=== PATIENT | male | born 1960 | race Caucasian/White ===

== ENCOUNTER 2021-12-27 01:57 | Day surgery (SDC) | payer BC, SELFPAY ==
[2021-12-14 13:07] VITALS: BMI 32.2
--- NOTE | 2021-12-27 07:58 | WPDANESEPPF ---
Anes - Initial Pre Proc Eval Procedure: Operation Date: 12/27/21 13:00 Proposed Procedures p Screening Colonoscopy - Manjit Miller MD Date/Time: 12/27/21 07:58 Surgeon: Manjit Miller MD Pre Op Diagnosis: neoplasm screening Patient Data Age: 61 Gender: M Height: 1.88 m Weight: 114 kg Allergies Allergy/AdvReac Type Severity Reaction Status Date / Time No Known Allergies Allergy Verified 12/27/21 11:42 Home Medications Medication Instructions Recorded Confirmed Type gemfibrozil 600 mg tablet 600 mg PO BID 11/29/21 12/14/21 History levothyroxine 88 mcg tablet 88 mcg PO DAILY 11/29/21 12/14/21 History lisinopril 10 mg tablet 10 mg PO DAILY 11/29/21 12/14/21 History metoprolol tartrate 100 mg tablet 100 mg PO DAILY 11/29/21 12/14/21 History tadalafil 5 mg tablet 5 mg PO DAILY 11/29/21 12/27/21 History Patient hx anesthesia problems: none Family hx anesthesia problems: none Results Review: All pre-operative results and documents have been reviewed as part of the pre-operative evaluation. [facility] Past Medical History Medical History (Updated 12/27/21 @ 07:59 by Bonilla Toure DO) Hyperlipidemia Hypertension Hypothyroidism Surgical History Surgical History H/O umbilical hernia repair History of vasectomy Family History Family History Other Breast cancer Unknown Diabetes mellitus Grandparent Acute myocardial infarction Father Cerebrovascular accident Social History Social History Smoking status: Never smoker Alcohol intake: current Alcohol use details: socially Substance use: never Substance use type: does not use Living arrangements: with family Spiritual care concerns: No Agree to blood products: Yes Anes - Eval Final PreProcedure Day of Procedure 12/27/21 07:58 Patient weight: obese Heart: regular rate and rhythm Lungs: clear to auscultation Airway: Mallampati scale class II Neurological: alert and oriented Last oral intake: >/= 8 hours ASA classification: III Emergent: no Anesthetic plan: proceed Anesthesia type and monitoring: general GIVS and standard monitoring Results Review: All pre-operative results and documents have been reviewed as part of the pre-operative evaluation. Informed Consent: The patient's anesthetic plan and its attendant risks and benefits were discussed with the patient/family/POA. Questions were solicited and answers provided to the satisfaction of the patient/family/POA.
[2021-12-27 11:43] VITALS: BP 134/80; PULSE 54; RESP 16; TEMP 36.2; O2SAT 100
[2021-12-27] MEDS: LACTATED RINGERS 1,000 ML 150 ML IV CONT (11:46)
--- NOTE | 2021-12-27 12:30 | P.HP_ITS ---
H&P: HPI History of Present Illness Date/Time: 12/27/21 12:30 Chief Complaint: History of colon polyp. Narrative: This is a 61-year-old white male patient presents for screening colonoscopy. Patient reports having had colon polyp at a different institution 5 years ago. Patient reports his current weight appetite and bowel movements are normal. He denies abdominal pain. Patient has had no bleeding. Family history is noncontributory. Review of Systems Review of Systems: Review of systems noncontributory. [facility] Past Medical History Medical History (Updated 12/27/21 @ 12:32 by Manjit Miller MD) Hyperlipidemia Hypertension Hypothyroidism Surgical History Surgical History H/O umbilical hernia repair History of vasectomy Family History Family History Other Breast cancer Unknown Diabetes mellitus Grandparent Acute myocardial infarction Father Cerebrovascular accident Social History Social History Smoking status: Never smoker Alcohol intake: current Alcohol use details: socially Substance use: never Substance use type: does not use Living arrangements: with family Spiritual care concerns: No Agree to blood products: Yes Meds Home Medications and Allergies Home Medications Medication Instructions Recorded Confirmed Type gemfibrozil 600 mg tablet 600 mg PO BID 11/29/21 12/14/21 History levothyroxine 88 mcg tablet 88 mcg PO DAILY 11/29/21 12/14/21 History lisinopril 10 mg tablet 10 mg PO DAILY 11/29/21 12/14/21 History metoprolol tartrate 100 mg tablet 100 mg PO DAILY 11/29/21 12/14/21 History tadalafil 5 mg tablet 5 mg PO DAILY 11/29/21 12/27/21 History Allergies Allergy/AdvReac Type Severity Reaction Status Date / Time No Known Allergies Allergy Verified 12/27/21 11:42 Vital Signs Vital Signs - 24 hr 12/27/21 11:43 Temperature 97.1 F L Pulse Rate 54 L Respiratory Rate 16 Blood Pressure 134/80 Pulse Oximetry 100 Oxygen Delivery Room Air Exam Narrative: Physical exam reveals patient to be alert. Vital signs stable. HEENT exam is unremarkable. Patient is anicteric. Lungs are clear to auscultation and percussion. Heart is without murmur or extra sounds. Abdomen bowel sounds present soft nontender with no organomegaly. Digital external rectal exam is normal. Assessment and Plan Assessment and plan (1) History of colon polyps: Code(s): Z86.010 - Personal history of colonic polyps Status: Acute Assessment and Plan: Patient has a prior history of colon polyps 5 years ago. Plan is for surveillance colonoscopy at this time. Further recommendations will be given after endoscopy.
[2021-12-27 12:52] VITALS: BP 99/65; PULSE 58; RESP 15; O2SAT 97
[2021-12-27 13:02] VITALS: BP 119/79; PULSE 55; RESP 19; O2SAT 98
[2021-12-27 13:12] VITALS: BP 104/71; PULSE 52; RESP 13; O2SAT 100
== END 2021-12-27 13:20 | disposition home or self-care (01) ==
PROVIDERS: PCP Family Medicine; Visit Provider Internal Medicine Gastroenterology
PROC: 0DJD8ZZ Inspection of Lower Intestinal Tract, Via Natural or Artificial Opening Endoscopic (ICD-10-PCS; CPT 45378; principal; 2021-12-27 13:00)
DX: Z12.11 Encounter for screening for malignant neoplasm of colon (principal); D12.5 Benign neoplasm of sigmoid colon; I10 Essential (primary) hypertension; E78.5 Hyperlipidemia, unspecified; E03.9 Hypothyroidism, unspecified; E66.9 Obesity, unspecified; Z68.31 Body mass index [BMI] 31.0-31.9, adult
CPT/HCPCS: 45385; 88305; J2704; J7120

== ENCOUNTER 2024-10-07 12:43 | Emergency (ER) | payer BC, SELFPAY ==
--- NOTE | ~2024-10-07 | XR_ITS ---
XR foot RT min 3V Ordering provider: Patrizia Hilario PA-C History: . pain to 2nd and 3rd MTP . Comparison: None. FINDINGS: BONES: No acute fracture or dislocation. JOINT SPACES: Narrowing of the distal interphalangeal joints. No tarsal coalition. SOFT TISSUES: Normal. Calcaneus spur. IMPRESSION: No acute osseous abnormality of the right foot. Reviewed, dictated and finalized at location A.
[2024-10-07 12:49] VITALS: BP 142/78; PULSE 76; RESP 16; TEMP 36.3; O2SAT 98
--- NOTE | 2024-10-07 15:05 | ED_ITS ---
HPI - Extremity Problem General Chief complaint: Extremity Problem,Nontraumatic Stated complaint: R. foot pain Time Seen by Provider: 10/07/24 16:15 Focused HPI: 63-year-old male presents emergency department for atraumatic right foot pain. Patient states he went to bed in his normal state of health and woke up this morning with pain to the right 2nd and 3rd MTPs. Denies injury or trauma but does state he was in a bowling tournament yesterday. States the area is swollen. Has been taking ibuprofen without improvement. GENERAL: Well-appearing, well-nourished, and in no acute distress. HEAD: Normocephalic, atraumatic. CHEST: No respiratory distress. EXT: RLE: Tenderness and mild swelling over the 2nd and 3rd MTPs. No obvious deformities. Patient able to wiggle toes. No tenderness remainder of foot or ankle. DP pulse 2 +. Sensation intact. Cap refill less than 2. HEART: Regular rate and rhythm.? NEURO: ?Alert and oriented x3. Patient screened in triage and initial orders placed.? ?Additional care and disposition to be based upon?diagnostic testing and treatment. Related Data Home Medications ?Medication ?Instructions ?Recorded ?Confirmed ?Last Taken ?Type omega-3 fatty acids 1,000 mg 1,000 mg PO DAILY 04/26/24 Unknown History capsule Allergies Allergy/AdvReac Type Severity Reaction Status Date / Time No Known Allergies Allergy Verified 10/07/24 12:51 Review of Systems Review of Systems: All systems reviewed & are unremarkable except as noted in HPI and below PMFSH Past Medical History Medical History Hypothyroidism Hyperlipidemia Hypertension Surgical History Surgical History History of vasectomy H/O umbilical hernia repair Family History Family History Other Breast cancer Unknown Diabetes mellitus Grandparent Acute myocardial infarction Father Cerebrovascular accident Social History Social History Social History: Caffeine-daily Smoking status: Never smoker Alcohol intake: current Drinks per week: 5 Alcohol use details: socially Beer Substance use: never Substance use type: does not use Do You Feel Safe in your Home?: Yes Lack of Transportation: No Lack of Food: Never True Current Housing: I Have Housing Concerned About Future Housing: No Difficulty Paying Gas/Electric Bills: No Difficulty Paying for Meds: No Currently Unemployed: No Education: Bachelor's Degree Difficulty w/ Childcare or Family Care: No Living arrangements: with family Occupation/Education: occupation Spiritual care concerns: No Agree to blood products: Yes Exam Narrative: GENERAL: Well-appearing, well-nourished, and in no acute distress. HEAD: Normocephalic, atraumatic. EYES: EOMI. ENT: Nares clear, no rhinorrhea or epistaxis. Mucous membranes moist. NECK: Supple. CHEST: No respiratory distress. HEART: Regular rate and rhythm. No murmur heard. Normal peripheral pulses. EXTREMITIES:Tenderness and mild swelling over the 2nd and 3rd MTPs. No obvious deformities. Patient able to wiggle toes. No tenderness remainder of foot or ankle. DP pulse 2 +. Sensation intact. Cap refill less than 2. SKIN: Warm, dry, no rash. NEURO: No focal deficits. Alert and oriented x3 Course Vital Signs Vital signs: Vital Signs Temperature 97.3 F L 10/07/24 12:49 Pulse Rate 76 10/07/24 12:49 Respiratory Rate 16 10/07/24 12:49 Blood Pressure 142/78 H 10/07/24 12:49 Pulse Oximetry 98 10/07/24 12:49 Temperature 97.3 F L 10/07/24 15:23 Pulse Rate 73 10/07/24 15:23 Respiratory Rate 18 10/07/24 15:23 Blood Pressure 148/85 H 10/07/24 15:23 Pulse Oximetry 97 10/07/24 15:23 MDM - Extremity (Nontraumatic) MDM Narrative Medical decision making narrative: 63-year-old male presents emergency department for right foot pain since today. Patient was in a [employer] tournament yesterday. He denies specific injury or trauma. Vitals are stable. Exam is significant for tenderness and mild edema over the 2nd and 3rd metatarsals. Patient is neurovascularly intact. X-ray shows no acute osseous findings. He was updated on results. Will start him on naproxen, encouraged rice and will have a follow-up with PCP. Discussed return precautions. He is agreeable to plan verbalized understanding. Discharged in stable condition. Discharge Plan Discharge Clinical Impression: Metatarsalgia of right foot Patient Disposition: Home Condition: Stable Instructions: Antibiotic Form, Metatarsalgia (DC) Additional Instructions: Please take the anti-inflammatories as directed. Rest, ice, elevate your foot. Follow-up closely with your primary care provider. Return to the emergency department if you develop any new or worsening symptoms. Patient Language: Indonesian Prescriptions: New naproxen 500 mg tablet 500 mg PO BID PRN (Reason: pain) Qty: 20 0RF No Action levothyroxine 88 mcg tablet 88 mcg PO DAILY Qty: 90 1RF indapamide 1.25 mg tablet 1.25 mg PO DAILY Qty: 90 1RF metoprolol succinate 50 mg tablet extended release 24 hr 50 mg PO DAILY Qty: 90 1RF pravastatin 10 mg tablet 10 mg PO DAILY Qty: 90 1RF tadalafil 5 mg tablet 5 mg PO DAILY Qty: 90 1RF omega-3 fatty acids 1,000 mg capsule 1,000 mg PO DAILY Follow-up/Referrals: Rosendo Boss MD [Primary Care Provider] -
[2024-10-07 15:23] VITALS: BP 148/85; PULSE 73; RESP 18; TEMP 36.3; O2SAT 97
== END 2024-10-07 17:01 | disposition home or self-care (01) ==
PROVIDERS: Emergency Provider Physician Assistant; PCP Family Medicine
DX: M77.41 Metatarsalgia, right foot (principal)
CPT/HCPCS: 73630; 99283